=== PATIENT | female | born 1955 | race Caucasian/White ===

== ENCOUNTER 2021-07-02 06:59 | Outpatient (CLI) | payer OTHER | END 2021-07-02 07:35 | disposition home or self-care (01) | LOC: LAB 06:59 | PROVIDERS: ATTEND Orthopaedic Surgery | DX: E56.1 Deficiency of vitamin K (principal); E21.3 Hyperparathyroidism, unspecified; M81.8 Other osteoporosis without current pathological fracture; M85.9 Disorder of bone density and structure, unspecified ==

== ENCOUNTER 2022-10-06 12:54 | Outpatient (CLI) | payer OTHER | END 2022-10-06 12:57 | disposition home or self-care (01) | LOC: NUCLEAR 12:54 | PROVIDERS: ATTEND Orthopaedic Surgery | DX: M81.0 Age-related osteoporosis without current pathological fracture (principal) ==

== ENCOUNTER 2022-10-10 06:32 | Outpatient (CLI) | payer OTHER | END 2022-10-10 06:34 | disposition home or self-care (01) | LOC: LAB 06:32 | PROVIDERS: ATTEND Orthopaedic Surgery | DX: M85.9 Disorder of bone density and structure, unspecified (principal); E83.42 Hypomagnesemia; E56.1 Deficiency of vitamin K; E21.3 Hyperparathyroidism, unspecified; E88.89 Other specified metabolic disorders; M81.8 Other osteoporosis without current pathological fracture ==

== ENCOUNTER 2024-10-14 12:45 | Outpatient (CLI) | payer OTHER | END 2024-10-14 12:46 | disposition home or self-care (01) | LOC: NUCLEAR 12:45 | PROVIDERS: ATTEND Orthopaedic Surgery | DX: I10 Essential (primary) hypertension (principal) ==

== ENCOUNTER 2024-11-07 06:19 | Outpatient (CLI) | payer OTHER ==
[2024-11-07 08:23] LABS: ALT/SGPT 38.0 U/L (12-78); AST/SGOT 21.0 U/L (15-37); BILIRUBIN TOTAL 0.74 mg/dL (0.3-1.2); BUN CREA RATIO 31.0 (7.0-25.0); CREATININE SERUM 0.48 mg/dL (0.55-1.02); GFR 129.0; GLOBULINA 3.1 G/DL (2.4-3.5); GLUCOSE FASTING 82.0 mg/dL (65-100); OSMOLALITY SERUM 285.0 MOSM/KG (275-295)
[2024-11-08 11:12] LABS: CALCIUM IONIZED 5.2 mg/dL (4.5-5.6)
== END 2024-11-07 06:37 | disposition home or self-care (01) ==
LOC: LAB 06:19
PROVIDERS: ATTEND Orthopaedic Surgery
DX: E55.9 Vitamin D deficiency, unspecified (principal); M85.9 Disorder of bone density and structure, unspecified; E56.1 Deficiency of vitamin K; E21.3 Hyperparathyroidism, unspecified; M81.8 Other osteoporosis without current pathological fracture; E88.9 Metabolic disorder, unspecified

== ENCOUNTER 2025-02-17 07:26 | Outpatient (CLI) | payer OTHER ==
[2025-02-17 08:51] LABS: BASO % 0.7 % (0.1-1.2); EOS # 0.42 (0.04-0.54); EOS % 7.5 % (0.7-7.0); LYMPH # 1.68 (1.18-3.74); LYMPH % 29.8 % (19.3-53.1); MEAN PLATELET VOLUME 8.70 fl (9.4-12.4); MONO # 0.54 (0.24-0.82); MONO % 9.6 % (4.7-12.5); NEUT # 2.94 (1.56-6.13); NEUT % 52.2 % (34.0-71.1); RED CELL DISTRIBUTION WIDTH 12.1 % (11.6-14.4)
[2025-02-17 08:57] LABS: URINE APPEARANCE Clear; URINE BILIRRUBIN Negative (NEGATIVE); URINE BLOOD Negative; URINE COLOR Yellow; URINE GLUCOSE Negative (NEGATIVE); URINE KETONE Negative (NEGATIVE); URINE LEUKOCYTE Trace; URINE NITRATE Negative; URINE PROTEIN Negative (NEGATIVE); URINE UROBILINOGEN 0.2 E.U./dl
[2025-02-17 08:58] LABS: URINE BACTERIA 31.2 uL (0.0-1933); URINE EPITHELIAL CELLS 2.2 uL (0.0-38.8); URINE RBC 4.1 uL (0.0-20.8); URINE WBC 3.6 uL (0.0-23.2)
[2025-02-17 09:12] LABS: URINE CAST 0.00 uL (0.0-1.40)
[2025-02-17 09:21] LABS: COL EPI 76 SECONDS (82-175)
[2025-02-17 09:25] LABS: INR 0.99
[2025-02-17 09:47] LABS: ALT/SGPT 30.0 U/L (12-78); AST/SGOT 21.0 U/L (15-37); BILIRUBIN TOTAL 0.88 mg/dL (0.3-1.2); BUN CREA RATIO 25.0 (7.0-25.0); CREATININE SERUM 0.51 mg/dL (0.55-1.02); GFR 119.92; GLOBULINA 3.3 G/DL (2.4-3.5); GLUCOSE FASTING 85.0 mg/dL (65-100); OSMOLALITY SERUM 282.0 MOSM/KG (275-295)
== END 2025-02-17 07:27 | disposition home or self-care (01) ==
LOC: RAD 07:26
PROVIDERS: ATTEND Orthopaedic Surgery
DX: D64.9 Anemia, unspecified (principal); E88.89 Other specified metabolic disorders; D68.8 Other specified coagulation defects; N39.0 Urinary tract infection, site not specified; Z22.322 Carrier or suspected carrier of Methicillin resistant Staphylococcus aureus; E11.9 Type 2 diabetes mellitus without complications; Z76.89 Persons encountering health services in other specified circumstances